=== PATIENT | female | born 1945 | race Caucasian/White ===

== ENCOUNTER 2018-06-10 07:56 | Day surgery (SDC) | payer MEDICARE, BC ==
[~2018-06-10 07:56] MED LIST: ACETAMINOPHEN 325 MG TAB PO; PHENYLEPHRINE HCL 10 % OPHTH. SOL 5ML OS; PROPARACAINE 0.5% OPHTH SOL 15ML OS
[2018-06-10] MEDS: LIDOCAINE 3.5 % 1ML OPHTH TOPICAL GEL OU (08:20)
[2018-06-10] MEDS: TROPICAMIDE 1% OPHTH SOLN 2ML OS (08:24)
[2018-06-10] MEDS: PHENYLEPHRINE 2.5% OPHTH SOL 2ML OS (08:24)
[2018-06-10] MEDS: OFLOXACIN 0.3 % (OCUFLOX) OPTH SOL 5ML OS (08:24)
[2018-06-10] MEDS: CYCLOPENTOLATE 2% OPHTH SOLN 2ML BTL OS (08:24)
[2018-06-10] MEDS ORDERED: fentaNYL 100 MCG/2 ML INJECTION (J3010) As Ordered (08:27)
[2018-06-10] MEDS ORDERED: MIDAZOLAM INJ 2 MG/2 ML VIAL (J2250) As Ordered (08:28)
[2018-06-10] MEDS ORDERED: TRIMETHOBENZAMIDE 300 MG CAP PO (08:30)
[2018-06-10] MEDS ORDERED: KETOROLAC 0.5% OPHTH SOLN OS (08:30)
[2018-06-10] MEDS: POVIDONE-IODINE 5% OPHTH PREP SOL 30ML As Ordered (09:47)
[2018-06-10] MEDS: CEFUROXIME 1MG/0.1ML INTRACAMERAL INJ As Ordered (09:50)
[2018-06-10] MEDS: HEALON DUET (HEALON 10MG/ML 0.55ML & HEALON ENDOCOAT 30MG/ML 0.85ML) As Ordered (09:50)
[2018-06-10] MEDS: BALANCED SALT IRRIGATION SOLUTION 500ML BAG (FOR OR EYE MACHINE) As Ordered (09:50)
[2018-06-10] MEDS: LIDOCAINE 1% SDV 5 ML VIAL As Ordered (09:50)
[2018-06-10] MEDS: AcetaZOLAMIDE 500 MG ER CAP PO (10:22)
== END 2018-06-10 10:29 | disposition home or self-care (01) ==
LOC: M SDC 07:56
DX: H25.12 Age-related nuclear cataract, left eye (principal); E78.00 Pure hypercholesterolemia, unspecified; R01.1 Cardiac murmur, unspecified; K21.9 Gastro-esophageal reflux disease without esophagitis; M12.9 Arthropathy, unspecified; M54.2 Cervicalgia; R06.83 Snoring; Z79.899 Other long term (current) drug therapy
CPT/HCPCS: 66984